=== PATIENT | female | born 1960 | race Caucasian/White ===

== ENCOUNTER 2018-07-10 07:29 | Emergency (ER) | payer BC ==
[~2018-07-10] VITALS: Ht 162.6 cm; Wt 104.3 kg
[~2018-07-10 07:29] MED LIST: CITA40TA5 PO; DOCU-109 PO; ESOM20CA PO; IBUP-1027 PO; LEVO137T3 PO; METH-38 PO; NAPR220C4 PO; OXYC1TAB7 PO; VENTOLIN HFA18 GM INH
[2018-07-10 08:08] LABS: BASO # 0.1 x10^3/uL (0.0-0.2); BASO % 1 % (0-3); EOS # 0.3 x10^3/uL (0.0-0.7); EOS % 4 % (0-3); HEMATOCRIT 39.6 % (36.0-47.0); HEMOGLOBIN 13.1 g/dL (12.0-15.5); LYMPH # 1.9 x10^3/uL (1.0-4.8); LYMPH % 29 % (24-48); MEAN CORPUSCULAR HEMOGLOBIN 30 pg (25-35); MEAN CORPUSCULAR HGB CONC 33 g/dL (31-37); MEAN CORPUSCULAR VOLUME 89 fL (79-100); MONO # 0.7 x10^3/uL (0.0-1.1); MONO % 10 % (0-9); NEUT # 3.8 x10^3uL (1.8-7.7); NEUT % 56 % (31-73); PLATELET COUNT 267 x10^3/uL (140-400); RED BLOOD COUNT 4.46 x10^6/uL (3.50-5.40); RED CELL DISTRIBUTION WIDTH 13.3 % (11.5-14.5); WHITE BLOOD COUNT 6.7 x10^3/uL (4.0-11.0)
[2018-07-10] MEDS ORDERED: ASPIRIN CHEWABLE 81 MG TABLET. PO ONE (08:15)
[2018-07-10] MEDS ORDERED: KETOROLAC 30 MG/ML VIAL. IV ONE (08:15)
[2018-07-10 08:17] LABS: CALCIUM 8.7 mg/dL (8.5-10.1); CREATININE 0.9 mg/dL (0.6-1.0); GFR 64.5; POTASSIUM 4.4 mmol/L (3.5-5.1)
--- NOTE | 2018-07-10 08:20 | RAD ---
Examination: PORTABLE CHEST 1V History: CHEST PAIN Comparison/Correlation: None Findings: Portable upright frontal view chest was obtained. Heart size normal. No pneumothorax. Pulmonary vasculature is within upper limits of normal. No infiltrate or pleural effusion. Bony structures are grossly unremarkable. Impression: No active disease. Electronically signed by: David Buckner MD (07/10/2018 8:17 AM) [id number]
[2018-07-10 08:23] LABS: ALBUMIN 3.5 g/dL (3.4-5.0); ALBUMIN/GLOBULIN RATIO 1.1 (1.0-1.7); MAGNESIUM 1.9 mg/dL (1.8-2.4); TOTAL BILIRUBIN 0.8 mg/dL (0.2-1.0); TOTAL PROTEIN 6.8 g/dL (6.4-8.2)
--- NOTE | 2018-07-10 08:27 | EKG ---
[facility] [address] [place] [address] Test Date: 2018-07-10 Test Time: 07:38:03 Pat Name: YOCASTA PERALES Department: Room: Gender: F [employer] Engineer: : 1960 Requested By: KAREN PASCUAL Order Number: [id number] Reading MD: Obey Castro MD Measurements Intervals [place] Rate: 76 P: 28 [place]: 152 QRS: 46 QRSD: 86 T: 48 QT: 400 QTc: 455 Interpretive Statements SINUS RHYTHM Electronically Signed On 07-10-2018 10:13:39 YACHT CAPTAIN by Obey Castro MD
[2018-07-10 08:32] LABS: CREATINE KINASE 48 U/L (26-192)
[2018-07-10 09:21] VITALS: BP 123/68
[2018-07-10] MEDS ORDERED: NAPR-683 PO (09:23)
--- NOTE | 2018-07-10 09:23 | PHYS DOC ---
Past Medical History Past Medical History: Anxiety, Depression, Hypothyroid, Other Additional Past Medical Histor: psoriasis Past Surgical History: Hysterectomy, Tonsillectomy, Other Additional Past Surgical Histo: back surgery Smoking: Quit Greater Than 1 Year Additional Information: quit smoking 5 years ago Alcohol Use: None Drug Use: None Adult General Chief Complaint Chief Complaint: CHEST PAIN [facility] HPI Patient is a 58 year old female who presents with obtaining of chest pain. Patient complaining of sudden onset of left sided chest pain while driving about an hour ago as a constant sharp pain without radiation. Patient states the pain was under her left breast and rated her pain 5/10. Patient denies shortness of breath, dizziness, palpitation, nausea and vomiting. Patient said the pain getting worse with taking deep breaths and movement. Patient states she had history of chest pain but today her pain was worse than her usual. Patient does not have cardiac history except for coronary artery disease in her great-grandmother. Review of Systems Review of Systems Constitutional: Denies fever or chills [] Eyes: Denies change in visual acuity, redness, or eye pain [] HENT: Denies nasal congestion or sore throat [] Respiratory: Denies cough or shortness of breath [] Cardiovascular: No additional information not addressed in HPI [] GI: Denies abdominal pain, nausea, vomiting, bloody stools or diarrhea [] : Denies dysuria or hematuria [] Musculoskeletal: Denies back pain or joint pain [] Integument: Denies rash or skin lesions [] Neurologic: Denies headache, focal weakness or sensory changes [] Endocrine: Denies polyuria or polydipsia [] All other systems were reviewed and found to be within normal limits, except as documented in this note. Current Medications Current Medications Current Medications Medications (Trade) Dose Ordered Sig/[place] Start Time Stop Time Status Last Admin Dose Admin Aspirin (Children'S Aspirin) 324 mg 1X ONCE 07/10/18 08:15 07/10/18 08:16 DC 07/10/18 08:13 324 MG Ketorolac Tromethamine (Toradol 30mg Vial) 30 mg 1X ONCE 07/10/18 08:15 07/10/18 08:16 DC 07/10/18 08:14 30 MG Allergies Allergies Allergies Coded Allergies Type Severity Reaction Last Updated Verified Penicillins Allergy Intermediate 03/03/16 Yes Physical Exam Physical Exam Constitutional: Well developed, well nourished, mild distress, non-toxic appearance. [] HENT: Normocephalic, atraumatic Eyes: PERRLA, EOMI, conjunctiva normal, no discharge. [] Neck: Normal range of motion, no tenderness, supple, no stridor. [] Cardiovascular:Heart rate regular rhythm, no murmur [] Lungs & Thorax: Bilateral breath sounds clear to auscultation, reproducible left chest wall pain [] Abdomen: Bowel sounds normal, soft, no tenderness, no masses, no pulsatile masses. [] Skin: Warm, dry, no erythema, no rash. [] Back: No tenderness, no CVA tenderness. [] Extremities: No tenderness, no cyanosis, no clubbing, ROM intact, no edema. [] Neurologic: Alert and oriented X 3, normal motor function, normal sensory function, no focal deficits noted. [] Psychologic: Affect anxious, judgement normal, mood normal. [] Current Patient Data Vital Signs Vital Signs Date Time Temp Pulse Resp B/P (MAP) Pulse Ox O2 Delivery O2 Flow Rate FiO2 07/10/18 08:19 69 16 128/76 (93) Room Air 96.0 07/10/18 07:36 98.9 96 98.9 Lab Values Laboratory Tests Test 07/10/18 07:50 White Blood Count 6.7 x10^3/uL (4.0-11.0) Red Blood Count 4.46 x10^6/uL (3.50-5.40) Hemoglobin 13.1 g/dL (12.0-15.5) Hematocrit 39.6 % (36.0-47.0) Mean Corpuscular Volume 89 fL (79-100) Mean Corpuscular Hemoglobin 30 pg (25-35) Mean Corpuscular Hemoglobin Concent 33 g/dL (31-37) Red Cell Distribution Width 13.3 % (11.5-14.5) Platelet Count 267 x10^3/uL (140-400) Neutrophils (%) (Auto) 56 % (31-73) Lymphocytes (%) (Auto) 29 % (24-48) Monocytes (%) (Auto) 10 % (0-9) H Eosinophils (%) (Auto) 4 % (0-3) H Basophils (%) (Auto) 1 % (0-3) Neutrophils # (Auto) 3.8 x10^3uL (1.8-7.7) Lymphocytes # (Auto) 1.9 x10^3/uL (1.0-4.8) Monocytes # (Auto) 0.7 x10^3/uL (0.0-1.1) Eosinophils # (Auto) 0.3 x10^3/uL (0.0-0.7) Basophils # (Auto) 0.1 x10^3/uL (0.0-0.2) Sodium Level 140 mmol/L (136-145) Potassium Level 4.4 mmol/L (3.5-5.1) Chloride Level 102 mmol/L (98-107) Carbon Dioxide Level 27 mmol/L (21-32) Anion Gap 11 (6-14) Blood Urea Nitrogen 10 mg/dL (7-20) Creatinine 0.9 mg/dL (0.6-1.0) Estimated GFR (Cockcroft-Gault) 64.5 BUN/Creatinine Ratio 11 (6-20) Glucose Level 98 mg/dL (70-99) Calcium Level 8.7 mg/dL (8.5-10.1) Magnesium Level 1.9 mg/dL (1.8-2.4) Total Bilirubin 0.8 mg/dL (0.2-1.0) Aspartate Amino Transferase (AST) 10 U/L (15-37) L Alanine Aminotransferase (ALT) 10 U/L (14-59) L Alkaline Phosphatase 98 U/L (46-116) Creatine Kinase 48 U/L (26-192) Creatine Kinase MB (Mass) 0.7 ng/mL (0.0-3.6) Creatine Kinase MB Relative Index % (0-4) Troponin I Quantitative < 0.017 ng/mL (0.000-0.055) XT-Bqr-G-Type Natriuretic Peptide 48 pg/mL (0-124) Total Protein 6.8 g/dL (6.4-8.2) Albumin 3.5 g/dL (3.4-5.0) Albumin/Globulin Ratio 1.1 (1.0-1.7) Lipase 91 U/L (73-393) Laboratory Tests 07/10/18 07:50 Laboratory Tests 07/10/18 07:50 EKG EKG EKG interpreted by me. EKG at 0738 showed normal sinus rhythm at rate of 76, normal IN and QT intervals, no acute ST and T-wave abnormalities Radiology/Procedures Radiology/Procedures [][facility] [address] [place] [address] IMAGING REPORT Signed PATIENT: YOCASTA PERALES ACCOUNT: [id number] : 1960 LOCATION: ER AGE: 58 SEX: F EXAM STATUS: PRE ER ORD. PHYSICIAN: KAREN PASCUAL MD REASON: chest pain PROCEDURE: PORTABLE CHEST 1V Examination: PORTABLE CHEST 1V History: CHEST PAIN Comparison/Correlation: None Findings: Portable upright frontal view chest was obtained. Heart size normal. No pneumothorax. Pulmonary vasculature is within upper limits of normal. No infiltrate or pleural effusion. Bony structures are grossly unremarkable. Impression: No active disease. Electronically signed by: David Angeles MD (07/10/2018 8:17 AM) [id number] DICTATED and SIGNED BY: DAVID ANGELES MD DATE: 07/10/18 0817 Course & Med Decision Making Course & Med Decision Making Pertinent Labs and Imaging studies reviewed. (See chart for details) Evaluation of patient in ER showed 58-year-old female patient with a cardiac history presented to ER with complaining of left-sided chest pain that getting worse with movement and breathing. Patient had chest wall reproducible pain. EKG and labs and chest x-ray was unremarkable. Patient treated with Toradol and felt better. Plan discharge patient home with diagnose of chest wall pain. Dragon Disclaimer Dragon Disclaimer This electronic medical record was generated, in whole or in part, using a voice recognition dictation system. Departure Departure Impression: Primary Impression: Musculoskeletal chest pain Disposition: HOME, SELF-CARE (at 0 922) Condition: IMPROVED Referrals: SHELLEY CARBAJAL DO (PCP) Patient Instructions: Chest Wall Pain Additional Instructions: Drink plenty of liquids Follow-up with your primary care physician in 3-5 days Return to ER if not getting better Scripts Naproxen (NAPROSYN) 500 Mg Tablet 1 TAB PO BID for pain, #20 TAB Prov: KAREN PASCUAL MD 07/10/18 KAREN PASCUAL MD Jul 10, 2018 09:23
== END 2018-07-10 09:35 | disposition home or self-care (01) ==
LOC: ER 07:29
DX: R07.89 Other chest pain (principal); F41.9 Anxiety disorder, unspecified; F32.9 Major depressive disorder, single episode, unspecified; E03.9 Hypothyroidism, unspecified; Z90.710 Acquired absence of both cervix and uterus; Z90.89 Acquired absence of other organs; Z87.891 Personal history of nicotine dependence; Z79.82 Long term (current) use of aspirin; Z88.0 Allergy status to penicillin
CPT/HCPCS: 36415; 71045; 80053; 82553; 83690; 83735; 83880; 84484; 85025; 93005; 96374; 99284; J1885